=== PATIENT | female | born 1965 | race Caucasian/White ===

== ENCOUNTER 2021-04-20 08:19 | Day surgery (SDC) | payer BC, OTHER ==
[~2021-04-20] VITALS: Ht 162 cm; Wt 75.0 kg
[2021-04-20] VITALS (12 sets, daily range): BP systolic 116–149; BP diastolic 68–82
[2021-04-20] MEDS ORDERED: morphine INJ 10 MG/ML 1ML (SYR OR VIAL) IVP STA (08:36)
[2021-04-20] MEDS ORDERED: ONDANSETRON 4 MG/2 ML (SDV) Z0FRAN IVP ONE (08:45)
[2021-04-20 09:04] LABS: WHITE BLOOD COUNT 10.2 10^3/uL (4.3-11.0)
[2021-04-20 09:05] LABS: BASOPHILS % (AUTO) 0 % (0-10); EOSINOPHILS # (AUTO) 0.2 10^3/uL (0.0-0.3); EOSINOPHILS % (AUTO) 2 % (0-10); HEMATOCRIT 42 % (35-52); HEMOGLOBIN 14.1 G/DL (11.5-16.0); LYMPHOCYTES # (AUTO) 2.9 X 10^3 (1.0-4.0); LYMPHOCYTES % (AUTO) 28 % (12-44); MEAN CORPUSCULAR HEMOGLOBIN 29 PG (25-34); MEAN CORPUSCULAR HGB CONC 34 G/DL (32-36); MEAN CORPUSCULAR VOLUME 87 FL (80-99); MEAN PLATELET VOLUME 11.5 FL (7.4-10.4); MONOCYTES % (AUTO) 10 % (0-12); NEUTROPHILS # (AUTO) 6.1 X 10^3 (1.8-7.8); NEUTROPHILS % (AUTO) 60 % (42-75); PLATELET COUNT 237 10^3/uL (130-400)
[2021-04-20 09:09] LABS: CLARITY,URINE SL CLOUDY; COLOR,URINE AMBER; GLUCOSE, URINE (UA) NEGATIVE (NEGATIVE); KETONES,URINE 2+ (NEGATIVE); NITRITE,URINE NEGATIVE (NEGATIVE); PROTEIN,URINE NEGATIVE (NEGATIVE)
[2021-04-20 09:10] LABS: BACTERIA,URINE FEW /HPF; BILIRUBIN,URINE 1+ (NEGATIVE); LEUKOCYTE ESTERASE ,URINE 2+ (NEGATIVE); WBC,URINE 25-50 /HPF
[2021-04-20 09:12] LABS: ALBUMIN 4.3 GM/DL (3.2-4.5); CALCIUM 9.5 MG/DL (8.5-10.1); CREATININE SERUM 0.48 MG/DL (0.60-1.30); TOTAL PROTEIN 7.9 GM/DL (6.4-8.2)
[2021-04-20] MEDS ORDERED: HOLD METFORMIN - RECEIVED CONTRAST 20 ML VIAL IV SCH (10:00)
[2021-04-20] MEDS ORDERED: NS 100 ML (IVPB) BAG IV ONE (10:00)
[2021-04-20] MEDS ORDERED: IOHEXOL 350 MG/ML 100 ML (OMNIPAQUE 350) VIAL IV ONE (10:00)
--- NOTE | 2021-04-20 10:34 | Diagnostic Imaging Report ---
CLINICAL INDICATION: Patient with deep right lower quadrant pain. Tubal ligation. EXAM: An axial CT scan of the abdomen and pelvis was performed with 100 cc of Omnipaque 350 IV contrast. Sagittal and coronal reformatted images were created. Auto Exposure Controls were utilized during the CT exam to meet ALARA standards for radiation dose reduction. COMPARISON: None. FINDINGS: There is minimal atelectasis involving both lung bases. There are degenerative spurs involving the lumbar spine. The liver, spleen, pancreas, gallbladder, and left adrenal gland are unremarkable. There is a roughly 12 mm indeterminate hypodense area involving the right adrenal gland with Hounsfield units of 62. Both kidneys are unremarkable with no hydronephrosis, stone, or mass. There is minimal prominence of the right ureter which may be related to adjacent inflammation. There is diffuse enlargement of the appendix which is fluid-filled in its mid and distal portion. The appendix measures up to 12 mm in width. There is no appendicolith seen. The appendix is in the mid to low right pelvis region and is seen closely adjacent to the right uterine fundus. There is a small amount of free fluid adjacent to the tip of the appendix. There is fat stranding in the pericecal region and mild wall thickening of the cecum. There is mild thickening of the terminal ileum near the ileocecal valve. Otherwise, the remainder of the small intestine shows no significant abnormality. There is no intra-abdominal free air. There is lymphadenopathy involving the mesenteric and pericecal region. The uterus and adnexal structures are unremarkable. The extra-abdominal and extra pelvic soft tissue structures are unremarkable. IMPRESSION: 1: There is diffuse enlargement of the appendix measuring up to 12 mm with adjacent fat stranding and fluid. This is concerning for appendicitis. There is no intra-abdominal free air or abscess. There is no appendicolith. 2: There is diffuse wall thickening involving the cecum and distal terminal ileum near the ileocecal valve region. There is fat stranding adjacent to the cecum. These findings may represent infectious or inflammatory ileocolitis or be secondary to appendicitis. 3: There is an indeterminate 12 mm low-density nodule involving the right adrenal gland. Comparison to prior noncontrast CT scans of the abdomen and pelvis would help better evaluate. If none are available, then a nonemergent noncontrast CT scan would better evaluate. 4: The results of this report regarding the 1st and 2nd impressions were discussed with Dr. Phani Marrero via the telephone on 04/20/2021 at 1025 hours. Dictated by: Dictated on workstation # [id number]
[2021-04-20] MEDS ORDERED: PIPERACILLIN SODIUM/TAZOBACTAM 4.5 GM in NS (IVPB) 100 ML IV ONE (10:45)
--- NOTE | 2021-04-20 11:09 | ED Abdominal Pain ---
General Chief Complaint: Abdominal/GI Problems Stated Complaint: ABD PAIN Nursing Triage Note: RIGHT LOWER QUAD PAIN SINCE YESTERDAY. REPORTS THE PAIN IS SHARP AND RATES THE PAIN 10/10. PT IS HIGHLY ANXIOUS UPON ARRIVAL TO THE ER. SHE REPORTS SHE SLEPT ALL DAY YESTERDAY SO SHE THINKS SHE IS DEHYDRATED. Source of Information: Patient History of Present Illness Date Seen by Provider: Apr 20, 2021 Time Seen by Provider: 09:00 Initial Comments Patient is a 56-year-old menopausal female presents with right lower quadrant pain intermittent for the past 2 days with gradual progression. Pain is moderate to severe worse with palpation and movement. It is not relieved with position change or rest. Patient reports nausea and decreased appetite. No vomiting. Patient has not ate in approximately 36 hours. She last drink water prior to ED arrival. No fever chills, sweats. No urinary frequency urgency or dysuria. No constipation or diarrhea. No other acute symptoms or complaints. Timing/Duration: 1-2 Days Severity/Quality: Dull Location: Other Radiation: Other Activities at Onset: Other Modifying Factors: Improves With Other Associated Symptoms: Other Allergies and Home Medications Allergies Coded Allergies: Sulfa (Sulfonamide Antibiotics) (Unverified Adverse Reaction, Mild, Rash, 04/20/21) Patient Home Medication List Home Medication List Reviewed: Yes Review of Systems Review of Systems Constitutional: see HPI EENTM: See HPI Respiratory: See HPI Cardiovascular: See HPI Gastrointestinal: See HPI Genitourinary: See HPI Musculoskeletal: see HPI Skin: see HPI Psychiatric/Neurological: See HPI Endocrine: See HPI Hematologic/Lymphatic: See HPI Past Vbixfqf-Vjrlls-Alxvkm Hx Patient Social History Tobacco Use?: No Use of E-Cig and/or Vaping dev: No Substance use?: No Alcohol Use?: No Pt feels they are or have been: No Immunizations Up To Date Influenza Vaccine Up-to-Date: Yes; Up-to-Date First/Initial COVID19 Vaccinat: NOVEMBER 2020 Second COVID19 Vaccination Moustapha: DECEMBER 2020 COVID19 Vaccine Coal Crusher Operator: KATALINA Physical Exam Vital Signs Vital Signs - First Documented 04/20/21 08:20 Temp 36.2 Pulse 101 Resp 20 B/P (MAP) 134/79 (97) Pulse Ox 97 O2 Delivery Room Air Capillary Refill : Less Than 3 Seconds Height/Weight/BMI Height: '" Weight: lbs. oz. kg; 28.00 BMI Method: General Appearance: moderate distress HEENT: PERRL/EOMI, normal ENT inspection Neck: supple Respiratory: lungs clear, normal breath sounds Gastrointestinal: soft, guarding, tenderness (Right lower quadrant pain tenderness.) Extremities: normal range of motion, non-tender, no pedal edema, no calf tenderness Back: normal inspection, no CVA tenderness Skin: normal color, warm/dry Progress/Results/Core Measures Results/Orders Lab Results Laboratory Tests Test 04/20/21 08:27 04/20/21 08:28 Range/Units Urine Color YVES H Urine Clarity SL CLOUDY Urine pH 6.0 5-9 Urine Specific [place] 1.020 1.016-1.022 Urine Protein NEGATIVE NEGATIVE Urine Glucose (UA) NEGATIVE NEGATIVE Urine Ketones 2+ H NEGATIVE Urine Nitrite NEGATIVE NEGATIVE Urine Bilirubin 1+ H NEGATIVE Urine Urobilinogen 0.2 < = 1.0 MG/DL Urine Leukocyte Esterase 2+ H NEGATIVE Urine RBC (Auto) 1+ H NEGATIVE Urine RBC 5-10 H /HPF Urine WBC 25-50 H /HPF Urine Squamous Epithelial Cells 10-25 H /HPF Urine Crystals NONE /LPF Urine Bacteria FEW H /HPF Urine Casts NONE /LPF Urine Mucus LARGE H /LPF Urine Culture Indicated YES White Blood Count 10.2 4.3-11.0 10^3/uL Red Blood Count 4.80 4.35-5.85 10^6/uL Hemoglobin 14.1 11.5-16.0 G/DL Hematocrit 42 35-52 % Mean Corpuscular Volume 87 80-99 FL Mean Corpuscular Hemoglobin 29 25-34 PG Mean Corpuscular Hemoglobin Concent 34 32-36 G/DL Red Cell Distribution Width 13.1 10.0-14.5 % Platelet Count 237 130-400 10^3/uL Mean Platelet Volume 11.5 H 7.4-10.4 FL Immature Granulocyte % (Auto) 0 % Neutrophils (%) (Auto) 60 42-75 % Lymphocytes (%) (Auto) 28 12-44 % Monocytes (%) (Auto) 10 0-12 % Eosinophils (%) (Auto) 2 0-10 % Basophils (%) (Auto) 0 0-10 % Neutrophils # (Auto) 6.1 1.8-7.8 X 10^3 Lymphocytes # (Auto) 2.9 1.0-4.0 X 10^3 Monocytes # (Auto) 1.0 0.0-1.0 X 10^3 Eosinophils # (Auto) 0.2 0.0-0.3 10^3/uL Basophils # (Auto) 0.0 0.0-0.1 10^3/uL Immature Granulocyte # (Auto) 0.0 0.0-0.1 10^3/uL Sodium Level 135 135-145 MMOL/L Potassium Level 4.0 3.6-5.0 MMOL/L Chloride Level 98 98-107 MMOL/L Carbon Dioxide Level 21 21-32 MMOL/L Anion Gap 16 H 5-14 MMOL/L Blood Urea Nitrogen 11 7-18 MG/DL Creatinine 0.48 L 0.60-1.30 MG/DL Estimat Glomerular Filtration Rate 134 BUN/Creatinine Ratio 23 Glucose Level 97 70-105 MG/DL Calcium Level 9.5 8.5-10.1 MG/DL Corrected Calcium 9.3 8.5-10.1 MG/DL Total Bilirubin 1.0 0.1-1.0 MG/DL Aspartate Amino Transf (AST/SGOT) 13 5-34 U/L Alanine Aminotransferase (ALT/SGPT) 19 0-55 U/L Alkaline Phosphatase 98 40-136 U/L Total Protein 7.9 6.4-8.2 GM/DL Albumin 4.3 3.2-4.5 GM/DL My Orders Orders - RADHA ALCANTARA DO Cbc With Automated Diff (04/20/21 08:36) Comprehensive Metabolic Panel (04/20/21 08:36) Urinalysis (04/20/21 08:36) Ct Abdomen/Pelvis W (04/20/21 08:36) Morphine Injection (Morphine Injection (04/20/21 08:36) Ondansetron Injection (Zofran Injectio (04/20/21 08:45) Urine Culture (04/20/21 08:27) Iohexol Injection (Omnipaque 350 Mg/Ml 1 (04/20/21 10:00) Received Contrast (Hold Metformin- Contr (04/20/21 10:00) Ns (Ivpb) (Sodium Chloride 0.9% Ivpb Bag (04/20/21 10:00) Piperacillin Sodium/Tazobactam (Zosyn Vi (04/20/21 10:45) Medications Given in ED Current Medications Medications Dose Ordered Sig/Fernanda Route Start Time Stop Time Status Last Admin Dose Admin Iohexol 100 ml ONCE ONCE IV 04/20/21 10:00 04/20/21 10:02 DC 04/20/21 09:53 100 ML Ondansetron HCl 4 mg ONCE ONCE IVP 04/20/21 08:45 04/20/21 08:46 DC 04/20/21 08:42 4 MG Piperacillin Sod/ Tazobactam Sod 4.5 gm/Sodium Chloride 100 ml @ 200 mls/hr ONCE ONCE IV 04/20/21 10:45 04/20/21 11:14 04/20/21 11:00 200 MLS/HR Sodium Chloride 100 ml ONCE ONCE IV 04/20/21 10:00 04/20/21 10:02 DC 04/20/21 09:53 80 ML Vital Signs/I&O 04/20/21 08:20 Temp 36.2 Pulse 101 Resp 20 B/P (MAP) 134/79 (97) Pulse Ox 97 O2 Delivery Room Air Blood Pressure Mean: 97 Departure Communication (Admissions) CT findings of acute appendicitis. IV antibiotics repeat pain medication given. Dr. Patricio excepts to same day surgical center. Patient request transfer by private vehicle. Impression Primary Impression: Acute appendicitis Disposition: XF [facility] Condition: Stable Admissions Decision to Admit Reason: Admit from ER (General) Decision to Admit/Date: Apr 20, 2021 Time/Decision to Admit Time: 11:00 Transfer Method of Transfer: Private Vehicle Departure-Patient Inst. Decision time for Depature: 11:09 Referrals: AMMY PALACIO MD (PCP) Primary Care Physician RADHA ALCANTARA DO Apr 20, 2021 11:09
[2021-04-20] MEDS ORDERED: fentaNYL INJ 100 MCG/2 ML AMP IVP ONE ×2 (11:15→14:45)
[2021-04-20] MEDS ORDERED: LIDOCAINE/EPI 1%-1:100,000 (XYLOCAINE) 20ML ONE (12:31)
[2021-04-20] MEDS ORDERED: CITA20TA12 PO (13:01)
[2021-04-20] MEDS ORDERED: SCOPOLAMINE 1.5 MG (TRANSDERM-SCOP) PATCH TOP ONE (13:15)
[2021-04-20] MEDS ORDERED: ONDANSETRON 4 MG/2 ML (SDV) Z0FRAN IV ONE (13:15)
[2021-04-20] MEDS ORDERED: LACTATED RINGERS 1,000 ML IV PRN (13:15)
[2021-04-20] MEDS ORDERED: FAMOTIDINE 20MG/2ML IV (PEPCID) IV ONE (13:15)
[2021-04-20] MEDS ORDERED: LIDOCAINE PF 2% 5 ML (XYLOCAINE) VIAL ONE (13:18)
[2021-04-20] MEDS ORDERED: ROCURONIUM 10 MG/ML 5 ML SYRINGE IV ONE (13:18)
[2021-04-20] MEDS ORDERED: proPOfol 200 MG/20 ML (DIPRIVAN) VIAL IV ONE (13:18)
[2021-04-20] MEDS ORDERED: NEOSTIGMINE 3 MG/3 ML VIAL ONE ×2 (13:18→14:14)
[2021-04-20] MEDS ORDERED: ONDANSETRON 4 MG/2 ML (SDV) Z0FRAN ONE (13:18)
[2021-04-20] MEDS ORDERED: fentaNYL INJ 100 MCG/2 ML AMP ONE ×2 (13:18→14:35)
[2021-04-20] MEDS ORDERED: MIDAZOLAM 2 MG/2 ML (VERSED) VIAL ONE ×2 (13:18→14:38)
[2021-04-20] MEDS ORDERED: GLYCOPYRROLATE 0.2 MG/ML (ROBINUL) 2 ML VIAL ONE ×2 (13:18→14:14)
[2021-04-20] MEDS ORDERED: SUCCINYLCHOLINE INJ 100 MG/5 ML SYR/VIAL ONE (13:20)
[2021-04-20] MEDS ORDERED: ceFAZolin 2 GM IV Premixed 50 ML ONE (13:21)
--- NOTE | 2021-04-20 13:29 | History & Physical-Surgical ---
History of Present Illness History of Present Illness Reason for visit/HPI Surgery asked to see pt regarding RLQ and appendicitis. HPI per ED: Patient is a 56-year-old menopausal female presents with right lowe r quadrant pain intermittent for the past 2 days with gradual progression. Pain is moderate to severe worse with palpation and movement. It is not relieved with position change or rest. Patient reports nausea and decreased appetite. No vomiting. Patient has not ate in approximately 36 hours. She last drink water prior to ED arrival. No fever chills, sweats. No urinary frequency urgency or dysuria. No constipation or diarrhea. No other acute symptoms or complaints. Timing/Duration: 1-2 Days Severity/Quality: Dull When I spoke to pt she described pain in the RLQ; "its starting to come back". Said she worked real hard on Tuesday and then on Tuesday didn't feel real well, thought she had just worked to hard but she fell asleep in the afternoon and slept until this am. However, she said she had pain all night long. Has never had pain like this before. Date of Admission 04/23/21 Time Seen by a Provider: 13:16 I consulted on this patient on 04/20/21 13:24 Attending Physician Darius Rios DO Admitting Physician Aleksandr Enriquez MD Consult Allergies and Home Medications Allergies Coded Allergies: Sulfa (Sulfonamide Antibiotics) (Unverified Adverse Reaction, Mild, Rash, 04/20/21) Home Medications Citalopram Hydrobromide 20 Mg Tablet, 30 MG PO DAILY, (Reported) Last Action: New Order Patient Home Medication List Home Medication List Reviewed: Yes Past Dzjtblr-Mehpej-Xbvuhb Hx Patient Social History Smoking Status: Never a Smoker Recent Hopitalizations: No Alcohol Use?: No Have you traveled recently?: No Immunizations Up To Date Tetanus Booster (TDap): Unknown Seasonal Allergies Seasonal Allergies: No Surgeries History of Surgeries: Yes Surgeries: Abdominal, Tubal Ligation Respiratory History of Respiratory Disorde: No Cardiovascular History of Cardiac Disorders: No Neurological 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, 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13) Reproductive System Female Reproductive Disorders: Denies DESK EDITOR History: Tubal Ligation Genitourinary History of Genitourinary Disor: No Gastrointestinal History of Gastrointestinal Di: No Musculoskeletal History of Musculoskeletal Dis: No Endocrine History of Endocrine Disorders: No HEENT History of HEENT Disorders: No Loss of Vision: Denies Hearing Impairment: Denies Cancer History of Cancer: No Psychosocial History of Psychiatric Problem: Yes Behavioral Health Disorders: Depression Integumentary History of Skin or Integumenta: No Blood Transfusions History of Blood Disorders: No Family Medical History Significant Family History: Heart Disease (family members), Hypertension (Mother) Review of Systems Constitutional: No chills; malaise, weakness EENTM: No blurred vision, No double vision, No mouth pain, No epistaxis Respiratory: No cough, No dyspnea on exertion, No hemoptysis, No short of breath Cardiovascular: No chest pain, No palpitations Gastrointestinal: RLQ, abdominal pain; No jaundice; loss of appetite, nausea; No vomiting Genitourinary: No dysuria, No frequency, No hematuria Musculoskeletal: No back pain, No joint pain Skin: No change in color, No change in hair/nails Psychiatric/Neurological: Denies Anxiety, Denies Depressed, Denies Seizure, Denies Tremors Physical Exam Vital Signs Vital Signs - First Documented 04/20/21 08:20 Temp 36.2 Pulse 101 Resp 20 B/P (MAP) 134/79 (97) Pulse Ox 97 O2 Delivery Room Air Capillary Refill : Less Than 3 Seconds Height, Weight, BMI Height: '" Weight: lbs. oz. kg; 28.57 BMI Method: General Appearance: No Apparent Distress Eyes: Bilateral Eye PERRL, Bilateral Eye EOMI HEENT: Pharynx Normal, Moist Mucous Membranes; No Pale Conjunctivae (L), No Pale Conjunctivae (R) Neck: Non Tender, Supple Respiratory: Chest Non Tender, Lungs Clear, Normal Breath Sounds, No Accessory Muscle Use, No Respiratory Distress Cardiovascular: Regular Rate, Rhythm, No Murmur Gastrointestinal: No Organomegaly, Soft; No Distended; Tenderness (RLQ) Back: No CVA Tenderness, No Vertebral Tenderness Extremity: Normal Capillary Refill, Normal Range of Motion, Non Tender, No Calf Tenderness Neurologic/Psychiatric: Alert, Oriented x3, No Motor/Sensory Deficits, Normal Mood/Affect, poultry boner II-XII Norm as Tested Skin: Normal Color, Warm/Dry Lymphatic: No Adenopathy (neck, axilla or groin) Data Review Labs Laboratory Tests 04/20/21 08:27: Urine Color AMBERH, Urine Clarity SL CLOUDY, Urine pH 6.0, Urine Specific [place] 1.020, Urine Protein NEGATIVE, Urine Glucose (UA) NEGATIVE, Urine Ketones 2+H, Urine Nitrite NEGATIVE, Urine Bilirubin 1+H, Urine Urobilinogen 0.2, Urine Leukocyte Esterase 2+H, Urine RBC (Auto) 1+H, Urine RBC 5-10H, Urine WBC 25-50H, Urine Squamous Epithelial Cells 10-25H, Urine Crystals NONE, Urine Bacteria FEWH, Urine Casts NONE, Urine Mucus LARGEH, Urine Culture Indicated YES 04/20/21 08:28: White Blood Count 10.2, Red Blood Count 4.80, Hemoglobin 14.1, Hematocrit 42, Mean Corpuscular Volume 87, Mean Corpuscular Hemoglobin 29, Mean Corpuscular Hemoglobin Concent 34, Red Cell Distribution Width 13.1, Platelet Count 237, Mean Platelet Volume 11.5H, Immature Granulocyte % (Auto) 0, Neutrophils (%) (Auto) 60, Lymphocytes (%) (Auto) 28, Monocytes (%) (Auto) 10, Eosinophils (%) (Auto) 2, Basophils (%) (Auto) 0, Neutrophils # (Auto) 6.1, Lymphocytes # (Auto) 2.9, Monocytes # (Auto) 1.0, Eosinophils # (Auto) 0.2, Basophils # (Auto) 0.0, Immature Granulocyte # (Auto) 0.0, Sodium Level 135, Potassium Level 4.0, Chloride Level 98, Carbon Dioxide Level 21, Anion Gap 16H, Blood Urea Nitrogen 11, Creatinine 0.48L, Estimat Glomerular Filtration Rate 134, BUN/Creatinine Ratio 23, Glucose Level 97, Calcium Level 9.5, Corrected Calcium 9.3, Total Bilirubin 1.0, Aspartate Amino Transf (AST/SGOT) 13, Alanine Aminotransferase (ALT/SGPT) 19, Alkaline Phosphatase 98, Total Protein 7.9, Albumin 4.3 Radiology Date of Exam:04/20/21 CT ABDOMEN/PELVIS W CLINICAL INDICATION: Patient with deep right lower quadrant pain. Tubal ligation. EXAM: An axial CT scan of the abdomen and pelvis was performed with 100 cc of Omnipaque 350 IV contrast. Sagittal and coronal reformatted images were created. Auto Exposure Controls were utilized during the CT exam to meet ALARA standards for radiation dose reduction. COMPARISON: None. FINDINGS: There is minimal atelectasis involving both lung bases. There are degenerative spurs involving the lumbar spine. The liver, spleen, pancreas, gallbladder, and left adrenal gland are unremarkable. There is a roughly 12 mm indeterminate hypodense area involving the right adrenal gland with Hounsfield units of 62. Both kidneys are unremarkable with no hydronephrosis, stone, or mass. There is minimal prominence of the right ureter which may be related to adjacent inflammation. There is diffuse enlargement of the appendix which is fluid-filled in its mid and distal portion. The appendix measures up to 12 mm in width. There is no appendicolith seen. The appendix is in the mid to low right pelvis region and is seen closely adjacent to the right uterine fundus. There is a small amount of free fluid adjacent to the tip of the appendix. There is fat stranding in the pericecal region and mild wall thickening of the cecum. There is mild thickening of the terminal ileum near the ileocecal valve. Otherwise, the remainder of the small intestine shows no significant abnormality. There is no intra-abdominal free air. There is lymphadenopathy involving the mesenteric and pericecal region. The uterus and adnexal structures are unremarkable. The extra-abdominal and extra pelvic soft tissue structures are unremarkable. IMPRESSION: 1: There is diffuse enlargement of the appendix measuring up to 12 mm with adjacent fat stranding and fluid. This is concerning for appendicitis. There is no intra-abdominal free air or abscess. There is no appendicolith. 2: There is diffuse wall thickening involving the cecum and distal terminal ileum near the ileocecal valve region. There is fat stranding adjacent to the cecum. These findings may represent infectious or inflammatory ileocolitis or be secondary to appendicitis. 3: There is an indeterminate 12 mm low-density nodule involving the right adrenal gland. Comparison to prior noncontrast CT scans of the abdomen and pelvis would help better evaluate. If none are available, then a nonemergent noncontrast CT scan would better evaluate. 4: The results of this report regarding the 1st and 2nd impressions were discussed with Dr. Phani Marrero via the telephone on 04/20/2021 at 1025 hours. Dictated by: Dictated on workstation # [id number] Dict: 04/20/21 1016 Trans: 04/20/21 1149 [id number] Interpreted by: ENRIQUE FARRAR MD Electronically signed by: ENRIQUE FARRAR MD 04/20/21 1149 Assessment/Plan Assessment/Plan Admission Diagonsis Acute Appendicitis Admission Status: Observation Assessment/Plan Acute Appendicitis Pt has what looks like acute appendicitis on CT, I reviewed the films myself and spoke with the ER physician (discussing the case). Her appendix is larger than normal and she has classic signs and symptoms of appendicitis. I discussed with pt and her the surgery; risks and complications not limited to pain, bleeding, infection, scar, damage to bowel and need for further procedure. All questions answered to their satisfaction. She had IV started, pain meds, anti-emetics and consent for surgery. DARIUS RIOS DO Apr 20, 2021 13:29
[2021-04-20] MEDS ORDERED: ACHD5005 PO (14:21)
--- NOTE | 2021-04-20 14:21 | Progress Note-Post Operative ---
Post-Operative Progess Note Surgeon (s)/Automobile Accessories Installer (s) Surgeon DARIUS RIOS DO Automobile Accessories Installer: none Pre-Operative Diagnosis APPENDICITIS Post-Operative Diagnosis same Procedure & Operative Findings Date of Procedure 04/20/21 Procedure Performed/Findings Laparoscopic Appendectomy PROCEDURE: Laparoscopic appendectomy. COMPLICATIONS: None. INDICATIONS: The patient is a 56 year old female who has been having right lower quadrant abdominal pain. Patient's exam consistent with appendicitis. I discussed risk and benefits of laparoscopic appendectomy and all indicated procedures with the possibility being a normal appendix. The patient understands the risks and benefits and wishes to proceed. Consent was signed on the chart. DESCRIPTION OF PROCEDURE: The patient was taken to the operating suite, prepped and draped in a sterile fashion. Timeout was performed. Local anesthetic was infiltrated just below the umbilicus and #11-blade scalpel was used to make a skin incision. Cautery was used to dissect down to the fascia and scored. Kochers were used to grasp and elevate it and the abdomen was then entered. A 0 Vicryl was placed in a [id number] fashion for closure at the end of the case. The balloon trocar was inserted into the abdomen and pneumoperitoneum was achieved. Under direct visualization of the laparoscope, a 5 mm trocar was placed in the suprapubic region and a 5 mm trocar was placed in the left lower quadrant. Appendix was located, mild inflammation and the tip was distended and firm. The base of the appendix was dissected around. Once at the base an Endo-FARZANEH 2.5 stapler was then fired across the base of the appendix. The mesoappendix was then divided. It was then placed in an Endobag and removed through the 12 mm trocar site. The abdomen was then irrigated and suctioned. No other pathology noted. The abdomen was then desufflated and the trocars were removed. The 0 Vicryl placed at the beginning of the case was then tied closing the 12 mm fascial defect. The skin was then closed using 4-0 Monocryl in a subcuticular fashion. The abdomen was then washed and dried and Skin Affix was placed over the incisions. The patient tolerated the procedure well without any complications and was taken to the recovery room in stable condition. Anesthesia Type GET Estimated Blood Loss Estimated blood loss (mL): scant Specimens/Packing Specimens Removed appendix DARIUS RIOS DO Apr 20, 2021 14:20
--- NOTE | 2021-04-20 14:23 | Discharge Inst-Surgical ---
Discharge Inst-Surgical Depart Medication/Instructions New, Converted or Re-Newed RX: Transmitted to Pharmacy Patient Instructions Follow up Appt: Make appointment for 1 week. [phone] Instructions: No lifting greater than 20 pounds. No strenuous activity. May shower in 24 hours, no tub bath or soaking. Use incentive spirometer at home as directed. No Smoking Skin/Wound Care: May remove bandages in am. You need to leave the Dermabond on incision it will fall off on it's own. Symptoms to Report: Appetite Changes, Extremity Discoloration, Numbness/Tingling, Swelling Increased, Bleeding Excessive, Eyesight Changes, Pain Increased, Urine Color Change, Constipation(Persistent), Fever over 101 degree F, Pain/Pressure in chest, Urinating Difficulty, Cough Up/Vomit Blood, Heart Beat Irreg/Pounding, Pain/Pressure in jaw, Cramps in feet or legs, Lightheadedness, Pain/Pressure in shoulder, Diarrhea(Persistent), Memory Changes Suddenly, Questions/Concerns, Weight gain consecutive days, Dizziness/Fainting, Nausea/Vomiting, Shortness of Breath, Weight gain over 2 pounds If questions or concerns contact your physician Or seek help at emergency department. Activity Activity as Tolerated: Yes Activity Instructions: Avoid Stress to Incision Driving Instructions: No Driving/Refer to Dr. Rolon Discharge Diet: No Restrictions Diet After 24 Hours: Clear Liquid if Nauseous If Any Problems/Questions/Issu: Contact Your Physician, Go to Emergency Room Skin/Wound Care Infection Signs and Symptoms: Increased Redness, Foul Odor of Wound, Increased Drainage, Skin Itchy or Has a Rash, Increased Swelling, Temperature Above 101 F Wound Care Comment: heating pad to shoulder or neck tonight for pain Bathing Instructions: Shower Stitches/[place]/Dermabond Dis: Dermabond Ice Pack: Ice On and Off Site DARIUS RIOS DO Apr 20, 2021 14:23
[2021-04-20] MEDS ORDERED: MEPERIDINE (DEMEROL) INJ 50 MG/ML ONE (14:29)
[2021-04-20] MEDS ORDERED: ONDANSETRON 4 MG/2 ML (SDV) Z0FRAN IVP PRN (14:45)
[2021-04-20] MEDS ORDERED: MIDAZOLAM 2 MG/2 ML (VERSED) VIAL IM ONE (14:45)
[2021-04-20] MEDS ORDERED: morphine INJ 10 MG/ML 1ML (SYR OR VIAL) IVP ONE (14:45)
[2021-04-20] MEDS ORDERED: MEPERIDINE (DEMEROL) INJ 50 MG/ML IVP ONE (14:45)
[2021-04-20] MEDS ORDERED: MIDAZOLAM 2 MG/2 ML (VERSED) VIAL IVP ONE (15:00)
--- NOTE | 2021-04-20 15:25 | Anesthesia-General Post-Op ---
General Patient Condition Mental Status/LOC: Same as Preop Cardiovascular: Satisfactory Nausea/Vomiting: Absent Respiratory: Satisfactory Pain: Controlled Complications: Absent Post Op Complications Complications None Follow Up Care/Instructions Patient Instructions None needed. Anesthesia/Patient Condition Patient Condition Patient is doing well, no complaints, stable vital signs, no apparent adverse anesthesia problems. DEYVI JONES DO Apr 20, 2021 15:25
[2021-04-20] MEDS ORDERED: HYDROcodone/APAP 5 MG/325 MG (LORTAB) TAB ONE (15:45)
[2021-04-20] MEDS ORDERED: HYDROcodone/APAP 5 MG/325 MG (LORTAB) TAB PO ONE (15:45)
== END 2021-04-20 16:55 | disposition home or self-care (01) ==
LOC: ER FS 08:21 → SDC 12:24
PROVIDERS: ATTEND Surgery
DX: K35.80 Unspecified acute appendicitis (principal); K38.0 Hyperplasia of appendix; F32.9 Major depressive disorder, single episode, unspecified; Z79.899 Other long term (current) drug therapy; Z98.51 Tubal ligation status; Z82.49 Family history of ischemic heart disease and other diseases of the circulatory system
CPT/HCPCS: 36415; 74177; 80053; 81000; 85025; 87077; 87081; 87088; 88304; 96374; 96375

== ENCOUNTER 2021-05-28 09:27 | Outpatient (CLI) | payer BC ==
[~2021-05-28] VITALS: Ht 162.6 cm; Wt 75.0 kg
[~2021-05-28 09:27] MED LIST: ACHD5005 PO; CITA20TA12 PO
== END 2021-05-28 14:10 ==
LOC: PREOP 09:27
PROVIDERS: ATTEND Surgery
DX: Z01.818 Encounter for other preprocedural examination (principal)

== ENCOUNTER 2021-06-08 07:05 | Day surgery (SDC) | payer BC ==
[~2021-06-08] VITALS: Ht 170.2 cm; Wt 75.0 kg
[2021-06-08] MEDS ORDERED: LACTATED RINGERS 1,000 ML IV STA (07:06)
[2021-06-08] MEDS ORDERED: LACTATED RINGERS 1,000 ML IV ONE (07:14)
[2021-06-08 07:21] VITALS: BP 132/85
[2021-06-08 08:30] VITALS: BP 82/50
[2021-06-08 08:35] VITALS: BP 83/51
[2021-06-08] MEDS ORDERED: PROPOFOL INJECTION 50 ML IV ONE (08:36)
[2021-06-08 08:40] VITALS: BP 88/49
--- NOTE | 2021-06-08 08:40 | Progress Note-Post Operative ---
Post-Operative Progess Note Surgeon (s)/Knurling Machine Tender (s) Surgeon DARIUS RIOS DO Knurling Machine Tender: ROMULO Enamorado Pre-Operative Diagnosis screening colon Post-Operative Diagnosis polyps diverticula int hemorrhoids Procedure & Operative Findings Date of Procedure 06/08/21 Procedure Performed/Findings PROCEDURE NOTE: After informed consent was obtained, the patient was brought to the endoscopy suite, placed in bed in left lateral decubitus position. She was administered IV sedation by the DOCUMENT REVIEWER who then monitored vitals the entire time, heart rate, blood pressure and pulse ox and the scope was inserted pushed all the way in to about 120 cm to get all the way to cecum, took a picture of the appendiceal orifice, noted the ileocecal valve and then slowly withdrew the scope, insufflating to look circumferentiallly at the perry. Starting in the cecum and actually just distal to the ileo-cecal valve saw 2 polyps near a diverticula. Elected to do a hot biopsy of these to remove them. Then continued up the ascending colon to the hepatic flexure, then down the transverse colon, splenic flexure, into the descending colon, down into the sigmoid and finally into the rectum, retroflexed in the rectal vault, saw some minimal internal hemorrhoids and took a picture of this. The patient tolerated the procedure and she recovered in the endoscopy suite. Anesthesia Type IV sedation by DOCUMENT REVIEWER Estimated Blood Loss Estimated blood loss (mL): scant Specimens/Packing Specimens Removed cecal polyps DARIUS RIOS DO Jun 08, 2021 08:40
--- NOTE | 2021-06-08 08:40 | Endoscopy Discharge Instruct ---
Endo Procedure/Findings Findings 1.: Polyp 2.: Diverticulosis 3.: Internal Hemorrhoids Discharge Instructions - Activity: You might feel a little sleepy until tomorrow. This is due to the medicine you received to relax you. Until tomorrow, you should: NOT drive a car, operate machinery or power tools. NOT drink any alcoholic beverages. NOT make any important decisions or sign importortant papers. Do not return to work until tomorrow, unless otherwise instructed. Resume previous activities tomorrow. Diet: Start by taking liquids. If you tolerate liquids, advance to solid food. 1.: Colonscopy in 5 years Notify Physician - If you experience excessive bleeding, unusual abdominal pain, fever, or chest pain, contact your doctor immediately. DARIUS RIOS DO Jun 08, 2021 08:40
[2021-06-08 08:45] VITALS: BP 85/68
[2021-06-08 09:10] VITALS: BP 118/68
--- NOTE | 2021-06-08 09:17 | Anesthesia-General Post-Op ---
MAC Patient Condition Mental Status/LOC: Same as Preop Cardiovascular: Satisfactory Nausea/Vomiting: Absent Respiratory: Satisfactory Pain: Controlled Complications: Absent Post Op Complications Complications None Follow Up Care/Instructions Patient Instructions None needed. Anesthesiology Discharge Order Discharge Order Patient is doing well, no complaints, stable vital signs, no apparent adverse anesthesia problems. No complications reported per nursing. SANDRA MONTERROSO CRNA Jun 08, 2021 09:17
== END 2021-06-08 09:20 | disposition home or self-care (01) ==
LOC: ENDO 07:05
PROVIDERS: ATTEND Surgery
DX: Z12.11 Encounter for screening for malignant neoplasm of colon (principal); K63.5 Polyp of colon; K57.30 Diverticulosis of large intestine without perforation or abscess without bleeding; K64.8 Other hemorrhoids; F32.9 Major depressive disorder, single episode, unspecified; Z79.899 Other long term (current) drug therapy; Z98.51 Tubal ligation status; Z90.89 Acquired absence of other organs; Z79.891 Long term (current) use of opiate analgesic; Z82.49 Family history of ischemic heart disease and other diseases of the circulatory system

== ENCOUNTER 2022-04-15 00:41 | Emergency (ER) | payer BC ==
[~2022-04-15] VITALS: Ht 162.5 cm; Wt 75.0 kg
--- NOTE | 2022-04-15 00:47 | ED General ---
General Stated Complaint: HEADACHE, ABD PAIN History of Present Illness Date Seen by Provider: Apr 15, 2022 Time Seen by Provider: 00:46 Initial Comments Patient was awoken from sleep around midnight (45 min ago) with a severe headache and now has what she calls "waves and nausea" and is mildly shaky. Patient denies fever, chills, chest pain, calf or any other systemic complaints. Patient has a history of migraines but has never experienced anything like this. Allergies and Home Medications Allergies Coded Allergies: Sulfa (Sulfonamide Antibiotics) (Unverified Adverse Reaction, Mild, Rash, 04/20/21) Patient Home Medication List Home Medication List Reviewed: Yes Citalopram Hydrobromide (Celexa) 20 Mg Tablet, 30 MG PO DAILY, (Reported) Entered as Reported by: ANTON CANCHOLA on 04/20/21 1301 Last Action: Reviewed Review of Systems Review of Systems Constitutional: No fever, No malaise, No weakness EENTM: no symptoms reported Respiratory: No cough, No short of breath Cardiovascular: No chest pain, No palpitations Gastrointestinal: No abdominal pain, No diarrhea; nausea; No vomiting Musculoskeletal: no symptoms reported Skin: no symptoms reported Psychiatric/Neurological: Headache Hematologic/Lymphatic: No Symptoms Reported Immunological/Allergic: no symptoms reported Past Rwwshdh-Vznekw-Vgcjfh Hx Immunizations Up To Date Tetanus Booster (TDap): Unknown First/Initial COVID19 Vaccinat: NOVEMBER 2020 Second COVID19 Vaccination Moustapha: DECEMBER 2020 Seasonal Allergies Seasonal Allergies: No Past Medical History Surgeries: Yes Abdominal, Tubal Ligation Respiratory: No Currently Using CPAP: No Currently Using BIPAP: No Cardiac: No 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, 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 oz. kg; 25.89 BMI Method: General Appearance: Mild Distress HEENT: PERRL/EOMI Neck: Normal Inspection Respiratory: Lungs Clear, Normal Breath Sounds Cardiovascular: Regular Rate, Rhythm, Normal Peripheral Pulses Gastrointestinal: Non Tender, Soft Extremity: Normal Capillary Refill, Normal Inspection Neurologic/Psychiatric: Alert, Oriented x3, No Motor/Sensory Deficits, Normal Mood/Affect, securities research analyst II-XII Norm as Tested Skin: Normal Color, Warm/Dry Progress/Results/Core Measures Suspected Sepsis SIRS Temperature: Pulse: Respiratory Rate: Laboratory Tests 04/15/22 00:50: White Blood Count 9.6 Blood Pressure / Mean: Laboratory Tests 04/15/22 00:50: Creatinine 0.57L, INR Comment 0.9, Platelet Count 248, Total Bilirubin 0.3 Results/Orders Lab Results Laboratory Tests Test 04/15/22 00:50 04/15/22 00:55 Range/Units White Blood Count 9.6 4.3-11.0 10^3/uL Red Blood Count 4.10 3.80-5.11 10^6/uL Hemoglobin 12.6 11.5-16.0 g/dL Hematocrit 37 35-52 % Mean Corpuscular Volume 89 80-99 fL Mean Corpuscular Hemoglobin 31 25-34 pg Mean Corpuscular Hemoglobin Concent 35 32-36 g/dL Red Cell Distribution Width 13.2 10.0-14.5 % Platelet Count 248 130-400 10^3/uL Mean Platelet Volume 11.5 9.0-12.2 fL Immature Granulocyte % (Auto) 0 % Neutrophils (%) (Auto) 40 L 42-75 % Lymphocytes (%) (Auto) 49 H 12-44 % Monocytes (%) (Auto) 7 0-12 % Eosinophils (%) (Auto) 3 0-10 % Basophils (%) (Auto) 0 0-10 % Neutrophils # (Auto) 3.8 1.8-7.8 10^3/uL Lymphocytes # (Auto) 4.8 H 1.0-4.0 10^3/uL Monocytes # (Auto) 0.7 0.0-1.0 10^3/uL Eosinophils # (Auto) 0.3 0.0-0.3 10^3/uL Basophils # (Auto) 0.0 0.0-0.1 10^3/uL Immature Granulocyte # (Auto) 0.0 0.0-0.1 10^3/uL Prothrombin Time 12.7 12.2-14.7 SEC INR Comment 0.9 0.8-1.4 Activated Partial Thromboplast Time 26 24-35 SEC Sodium Level 141 135-145 MMOL/L Potassium Level 3.2 L 3.6-5.0 MMOL/L Chloride Level 105 98-107 MMOL/L Carbon Dioxide Level 19 L 21-32 MMOL/L Anion Gap 17 H 5-14 MMOL/L Blood Urea Nitrogen 8 7-18 MG/DL Creatinine 0.57 L 0.60-1.30 MG/DL Estimat Glomerular Filtration Rate 106 BUN/Creatinine Ratio 14 Glucose Level 125 H 70-105 MG/DL Calcium Level 9.1 8.5-10.1 MG/DL Corrected Calcium 8.7 8.5-10.1 MG/DL Magnesium Level 1.8 1.6-2.4 MG/DL Total Bilirubin 0.3 0.1-1.0 MG/DL Aspartate Amino Transf (AST/SGOT) 15 5-34 U/L Alanine Aminotransferase (ALT/SGPT) 12 0-55 U/L Alkaline Phosphatase 87 40-136 U/L C-Reactive Protein < 0.30 <0.50 MG/DL Total Protein 6.9 6.4-8.2 GM/DL Albumin 4.5 3.2-4.5 GM/DL SARS-CoV-2 RNA (RT-PCR) Not Detected Not Detecte My Orders Orders - PENNINGTON,BLAINE L DO Ct Head Wo (04/15/22 00:47) Cbc With Automated Diff (04/15/22 00:47) Comprehensive Metabolic Panel (04/15/22 00:47) Magnesium (04/15/22 00:47) Protime With Inr (04/15/22 00:47) Partial Thromboplastin Time (04/15/22 00:47) Crp Fs (04/15/22 00:47) Ondansetron Injection (Zofran Injectio (04/15/22 01:00) Ed Iv/Invasive Line Start (04/15/22 00:47) Covid 19 Inhouse Test (04/15/22 00:47) Ns Iv 1000 Ml (Sodium Chloride 0.9%) (04/15/22 01:40) Ketorolac Injection (Toradol Injection) (04/15/22 02:15) Diphenhydramine Injection (Benadryl Inje (04/15/22 02:15) Medications Given in ED Current Medications Medications Dose Ordered Sig/Fernanda Route Start Time Stop Time Status Last Admin Dose Admin Ondansetron HCl 4 mg ONCE ONCE IVP 04/15/22 01:00 04/15/22 01:01 DC 04/15/22 00:56 4 MG Vital Signs/I&O 04/15/22 04/15/22 00:42 02:30 Temp 36.4 36.2 Pulse 92 60 Resp 25 14 B/P (MAP) 128/75 (92) 113/64 Pulse Ox 100 97 O2 Delivery Room Air Room Air Capillary Refill : Progress Note : Progress Note Patient with negative head CT and no acute findings on labs. Patient symptoms may be from a virus, GI bug versus migraine.. She felt better following Zofran reports that that pain was improving. Patient reports that she was It is going to take Excedrin Migraine however her and her talked about getting thought she would like something prior to discharge. She was given To jason Draper. Patient was then discharged home. Patient was stable upon discharge Diagnostic Imaging Diagonstic Imaging: CT Plain Films/CT/US/NM/MRI: head Comments Negative head CT Departure Impression Primary Impression: Headache Qualified Codes: R51.9 - Headache, unspecified Additional Impression: Nausea with vomiting, unspecified Qualified Codes: R11.2 - Nausea with vomiting, unspecified Disposition: HOME, SELF-CARE Condition: Stable Departure-Patient Inst. Referrals: AMMY PALACIO MD (PCP/Family) Primary Care Physician Patient Instructions: Nausea and Vomiting, Adult (DC), Headache, Adult (DC) Add. Discharge Instructions: Drink plenty of fluids Follow-up with your primary care provider if your symptoms become more recurrent for further evaluation BLAINE PENNINGTON DO Apr 15, 2022 00:47
[2022-04-15] MEDS: ONDANSETRON 4 MG/2 ML (SDV) Z0FRAN IVP ONE (00:56)
[2022-04-15 01:05] LABS: BASOPHILS % (AUTO) 0 % (0-10); EOSINOPHILS # (AUTO) 0.3 10^3/uL (0.0-0.3); EOSINOPHILS % (AUTO) 3 % (0-10); HEMATOCRIT 37 % (35-52); HEMOGLOBIN 12.6 g/dL (11.5-16.0); LYMPHOCYTES # (AUTO) 4.8 10^3/uL (1.0-4.0); LYMPHOCYTES % (AUTO) 49 % (12-44); MEAN CORPUSCULAR HEMOGLOBIN 31 pg (25-34); MEAN CORPUSCULAR HGB CONC 35 g/dL (32-36); MEAN CORPUSCULAR VOLUME 89 fL (80-99); MEAN PLATELET VOLUME 11.5 fL (9.0-12.2); MONOCYTES # (AUTO) 0.7 10^3/uL (0.0-1.0); MONOCYTES % (AUTO) 7 % (0-12); NEUTROPHILS # (AUTO) 3.8 10^3/uL (1.8-7.8); NEUTROPHILS % (AUTO) 40 % (42-75); PLATELET COUNT 248 10^3/uL (130-400); WHITE BLOOD COUNT 9.6 10^3/uL (4.3-11.0)
[2022-04-15 01:24] LABS: INR 0.9 (0.8-1.4); PROTHROMBIN TIME PATIENT 12.7 SEC (12.2-14.7)
[2022-04-15 01:27] LABS: BUN/CREATININE RATIO 14; CARBON DIOXIDE 19 MMOL/L (21-32); CHLORIDE 105 MMOL/L (98-107); CREATININE SERUM 0.57 MG/DL (0.60-1.30); GFR ESTIMATED 106; POTASSIUM 3.2 MMOL/L (3.6-5.0); SODIUM 141 MMOL/L (135-145)
[2022-04-15 01:28] LABS: ALANINE AMINOTRANSFERASE 12 U/L (0-55); ALBUMIN 4.5 GM/DL (3.2-4.5); ALKALINE PHOSPHATASE 87 U/L (40-136); BILIRUBIN,TOTAL 0.3 MG/DL (0.1-1.0); CALCIUM 9.1 MG/DL (8.5-10.1); GLUCOSE 125 MG/DL (70-105); MAGNESIUM 1.8 MG/DL (1.6-2.4); TOTAL PROTEIN 6.9 GM/DL (6.4-8.2)
[2022-04-15] MEDS: NS IV 1000 ML 1,000 ML IV STA (01:45)
[2022-04-15] MEDS: diphenhydrAMINE 50 MG/ML INJ (BENADRYL) IV STA (02:22)
[2022-04-15] MEDS: KETOROLAC 30 MG/ML VIAL IVP STA (02:22)
[2022-04-15 02:30] VITALS: BP 113/64
--- NOTE | 2022-04-15 07:31 | Diagnostic Imaging Report ---
INDICATION: headache nausea and vomiting. TECHNIQUE: Routine non contrast-enhanced axial images were obtained from the skull base to the vertex. Auto Exposure Controls were utilized during the CT exam to meet ALARA standards for radiation dose reduction COMPARISON: None. FINDINGS: The ventricles and cortical sulci are normal in size and contour. There is no midline shift or mass-effect. No acute intra-axial hemorrhage is seen. There are no abnormal areas of increased or decreased density to suggest acute hemorrhage or edema. No extra-axial masses or collections are present. The bony calvarium is intact. The visualized paranasal sinuses are unremarkable. The mastoid air cells are clear. IMPRESSION: 1. No acute intracranial abnormality. No CT evidence of mass, acute infarct or intracranial hemorrhage. 2. I agree with [place] report. Dictated by: Dictated on workstation # [id number]
== END 2022-04-15 02:30 | disposition home or self-care (01) ==
LOC: EDUNIT# 00:41 → ER FS 00:44
DX: R51.9 Headache, unspecified (principal); R11.2 Nausea with vomiting, unspecified; Z86.69 Personal history of other diseases of the nervous system and sense organs; Z20.822 Contact with and (suspected) exposure to COVID-19
CPT/HCPCS: 36415; 70450; 80053; 83735; 85025; 85610; 85730; 86141; 87636